=== PATIENT | male | born 1975 | race Hispanic/Latino ===

== ENCOUNTER → 2016-10-06 | Day surgery (SDC) | payer OTHER ==
[~2016-10-06] VITALS: Ht 167.6 cm; Wt 86.2 kg
--- NOTE | 2016-10-06 11:08 | Operative Report ---
Operative/Inv Procedure Report Surgery Date: 10/06/16 Name of Procedure: Right knee arthroscopy, partial medial meniscectomy Pre-Operative Diagnosis: Right knee medial meniscus tear Post-Operative Diagnosis: Right knee medial meniscus tear Estimated Blood Loss: scant Surgeon/Sas Analyst: JASPREET MARIN MD Anesthesia: laryngeal mask airway, block Complications: none Condition: Stable to PACU Operative Indication: This is a 40-year-old male with long-standing right knee pain. He has failed conservative measures. MRI showed a medial meniscus tear. Risks and benefits of the procedure were discussed with the patient at length. Risks include but are not limited to nerve damage, muscle damage, infection, blood loss, blood clots, pulmonary embolus, and even . The patient agreed to the above risks and elected to proceed with surgery. Operative/Procedure Note Note: The patient was placed supine on the operating room table. A tourniquet was applied. The lower extremity prepped and draped in normal sterile fashion. A timeout was performed before the incision. The site marking was visualized before incision. After the leg was prepped and draped, an Esmarch was used to exsanguinate the extremity. The tourniquet was inflated. A standard inferolateral portal was established with an 11 blade. The camera was inserted. A medial portal was established with a spinal needle and an 11 blade. The diagnostic arthroscopy was then performed which showed the above findings. An upbiter as well as a shaver were used to debride the posterior horn of the medial meniscus. The camera was then switched to the medial portal. The biter was then brought through the lateral portal and further debridement of the body of the meniscus was then performed. The shaver was used to complete the debridement. The knee was copiously irrigated. The portal sites were closed with 3-0 nylon suture in a simple interrupted fashion. The knee was injected with 10 mL of 0.25% Marcaine with epinephrine. A dry sterile dressing was applied and the patient was transferred to PACU in stable condition. Findings: Complex tear of the body and posterior horn of the medial meniscus. Medial compartment articular cartilage with grade 1 chondral softening. ACL intact. PCL intact. Lateral compartment articular cartilage and meniscus intact. Patellofemoral joint articular cartilage intact. No loose bodies noted.
== END ==
LOC: STS 01:48
DX: M23.221 Derangement of posterior horn of medial meniscus due to old tear or injury, right knee (principal); F17.200 Nicotine dependence, unspecified, uncomplicated
CPT/HCPCS: J0690; J2250

== ENCOUNTER → 2017-08-10 | Day surgery (SDC) | payer OTHER ==
[~2017-08-10] VITALS: Ht 167.6 cm; Wt 86.2 kg
--- NOTE | 2017-08-10 16:39 | Operative Report ---
Operative/Inv Procedure Report Surgery Date: 08/10/17 Name of Procedure: Left knee arthroscopy, partial medial meniscectomy Pre-Operative Diagnosis: Left knee medial meniscus tear Post-Operative Diagnosis: Left knee medial meniscus tear Estimated Blood Loss: scant Surgeon/Industrial Sales Manager: Werner Gonzalez MD Anesthesia: local monitored anesthesi Complications: None Condition: Stable to PACU Operative Indication: This is a 41-year-old malfunctioning left knee pain. MRI showed a medial meniscus tear. Risks and benefits of the procedure were discussed with the patient at length. Risks include but are not limited to nerve damage, muscle damage, infection, blood loss, blood clots, pulmonary embolus, and even . The patient agreed to the above risks and elected to proceed with surgery. Operative/Procedure Note Note: The patient was placed supine on the operating room table. A tourniquet was applied. The lower extremity prepped and draped in normal sterile fashion. A timeout was performed before the incision. The site marking was visualized before incision. After the leg was prepped and draped, an Esmarch was used to exsanguinate the extremity. The tourniquet was inflated. A standard inferolateral portal was established with an 11 blade. The camera was inserted. A medial portal was established with a spinal needle and an 11 blade. The diagnostic arthroscopy was then performed which showed the above findings. An upbiter as well as a shaver was used to debride the medial meniscus back to a stable rim of cartilage. Remainder of the diagnostic arthroscopy was performed. No other abnormalities were noted. The knee was copiously irrigated. The portal sites were closed with 3-0 nylon suture in a simple interrupted fashion. The knee was injected with 10 mL of 0.25% Marcaine with epinephrine. A dry sterile dressing was applied and the patient was transferred to PACU in stable condition. Findings: Complex tear of the body and posterior horn medial meniscus extending to the periphery posteriorly. Medial compartment trigger cartilage with grade 1 chondral softening. ACL intact. PCL intact. Lateral compartment trigger cartilage and meniscus intact. Patellofemoral joint cartilage intact.
== END ==
LOC: STS 02:28
DX: M23.222 Derangement of posterior horn of medial meniscus due to old tear or injury, left knee (principal); F17.200 Nicotine dependence, unspecified, uncomplicated
CPT/HCPCS: J0690; J2250